=== PATIENT | male | born 1940 | race Asian ===

== ENCOUNTER 2018-07-31 15:39 | Inpatient (IN) | payer OTHER ==
[2018-07-31 16:16] LABS: ADD MAN DIFF? NO
[2018-07-31 16:23] LABS: WHITE BLOOD COUNT 4.3 10^3/ul (4.8-10.8)
[2018-07-31 16:23] LABS: BASOPHILS % 0.7 % (0.0-2.0); EOSINOPHILS # 0.1 10^3/ul (0.0-0.5); EOSINOPHILS % 2.3 % (0.0-7.0); HEMATOCRIT 36.2 % (42.0-52.0); HEMOGLOBIN 11.2 g/dl (14.0-18.0); LYMPHOCYTES % 23.6 % (15.0-51.0); MEAN CORPUSCULAR HEMOGLOBIN 31.2 pg (29.0-33.0); MEAN CORPUSCULAR HGB CONC 30.9 g/dl (32.0-37.0); MEAN CORPUSCULAR VOLUME 100.8 fl (82.0-101.0); MEAN PLATELET VOLUME 9.3 fl (7.4-10.4); MONOCYTE # 0.4 10^3/ul (0.3-0.9); MONOCYTES % 9.2 % (0.0-11.0); NEUTROPHIL # 2.8 10^3/ul (1.6-7.5); PLATELET COUNT 160 10^3/UL (140-415); RED BLOOD COUNT 3.59 10^6/ul (4.70-6.10); RED CELL DISTRIBUTION WIDTH 15.7 % (11.5-14.5)
[2018-07-31 16:43] LABS: INR 0.93; PROTIME 12.6 Sec (11.9-14.9)
[2018-07-31 16:44] LABS: PARTIAL THROMBOPLASTIN TIME 31.6 Sec (23.0-35.0)
[2018-07-31 16:53] LABS: ALANINE AMINOTRANSFERASE 23 IU/L (13-69); ALBUMIN 4.1 g/dl (3.3-4.9); ALBUMIN/GLOBULIN RATIO 1.13; ALKALINE PHOSPHATASE 67 IU/L (42-121); ANION GAP 12 (5-13); ASPARTATE AMINO TRANSFERASE 23 IU/L (15-46); BILIRUBIN,INDIRECT 0.1 mg/dl (0-1.1); BILIRUBIN,TOTAL 0.1 mg/dl (0.2-1.3); BLOOD UREA NITROGEN 59 mg/dl (7-20); CALCIUM 10.4 mg/dl (8.4-10.2); CARBON DIOXIDE 36 mmol/L (21-31); CHLORIDE 89 mmol/L (97-110); CREATINE KINASE 81 IU/L (23-200); GLUCOSE 94 mg/dl (70-220); POTASSIUM 4.4 mmol/L (3.5-5.1); SODIUM 137 mmol/L (135-144); TOTAL PROTEIN 7.7 g/dl (6.1-8.1)
[2018-07-31 17:04] LABS: CREATININE 9.81 mg/dl (0.61-1.24)
[2018-07-31 17:11] LABS: B-TYPE NATRIURETIC PEPTIDE 17400 PG/ML (0-450); CK INDEX 1.9; CK-MB 1.54 ng/ml (0.0-2.4); TROPONIN-I 0.031 ng/ml (0.000-0.120)
[2018-07-31] MEDS: ALBUTEROL 0.083% (NEB) 2.5 MG/3 ML AMP NEB (17:40)
[2018-07-31] MEDS: IPRATROPIUM (NEB) 0.5 MG/2.5 ML AMP NEB (17:40)
[2018-07-31] MEDS ORDERED: ACETAMINOPHEN 325 MG TAB PO (18:30)
[2018-07-31] MEDS ORDERED: ONDANSETRON 4 MG INJ IV ×2 (18:30→22:00)
[2018-07-31 20:27] LABS: AADO2 Arterial 100.1 mmHg (7.0-24.0); Allen Test ACCEPTAB; Arterial Base Excess 6.3 mmol/L (-3.0-3); Arterial Blood Gas Oxygen Sat 95.5 mmHG (95.0-100.0); Arterial COHb 0.6 % (0.0-3.0); Arterial Fraction of Oxyhgb 94.6 % (93.0-99.0); Arterial HCO3 30.9 mmol/L (22.0-26.0); Arterial MetHb 0.3 % (0.0-1.5); Arterial pCO2 45.1 mmhg (35-45); MODE NASAL CANNULA; Site Left Radial
[2018-07-31] MEDS: IODIXANOL LOCM 100 ML BTL (20:29)
[2018-07-31] MEDS: SOD CHLORIDE 0.9% 100 ML (20:29)
[2018-07-31] MEDS ORDERED: ACETAMINOPHEN 500 MG TAB PO (22:00)
[2018-07-31] MEDS ORDERED: RENVELA XX (22:30)
[2018-07-31] MEDS: SEVELAMER CARBONATE 800 MG TABLET PO (23:02)
[2018-07-31] MEDS: CEFTRIAXONE 1 GM/50 ML (PMX) 50 ML IVPB (23:15)
[2018-07-31] MEDS: METOPROLOL (XL) 25 MG TAB PO (23:34)
[2018-07-31] MEDS: DOXAZOSIN 4 MG TAB PO (23:35)
[2018-07-31] MEDS: AZITHROMYCIN 500MG/NS (PMX) 250 ML IVPB (23:56)
[2018-08-01 05:55] LABS: ADD MAN DIFF? NO
[2018-08-01 05:59] LABS: WHITE BLOOD COUNT 4.4 10^3/ul (4.8-10.8)
[2018-08-01 05:59] LABS: BASOPHILS % 0.7 % (0.0-2.0); EOSINOPHILS # 0.1 10^3/ul (0.0-0.5); EOSINOPHILS % 2.5 % (0.0-7.0); HEMATOCRIT 30.9 % (42.0-52.0); HEMOGLOBIN 9.7 g/dl (14.0-18.0); LYMPHOCYTES % 22.6 % (15.0-51.0); MEAN CORPUSCULAR HEMOGLOBIN 31.3 pg (29.0-33.0); MEAN CORPUSCULAR HGB CONC 31.4 g/dl (32.0-37.0); MEAN CORPUSCULAR VOLUME 99.7 fl (82.0-101.0); MEAN PLATELET VOLUME 9.4 fl (7.4-10.4); MONOCYTE # 0.4 10^3/ul (0.3-0.9); MONOCYTES % 9.1 % (0.0-11.0); NEUTROPHIL # 2.8 10^3/ul (1.6-7.5); NEUTROPHILS % 64.9 % (39.0-77.0); PLATELET COUNT 133 10^3/UL (140-415); RED CELL DISTRIBUTION WIDTH 15.9 % (11.5-14.5)
[2018-08-01 06:26] LABS: ALBUMIN 3.3 g/dl (3.3-4.9); ANION GAP 13 (5-13); BLOOD UREA NITROGEN 66 mg/dl (7-20); CALCIUM 9.8 mg/dl (8.4-10.2); CARBON DIOXIDE 30 mmol/L (21-31); CHLORIDE 95 mmol/L (97-110); CHOL/HDL RATIO 2.1 RATIO; CHOLESTEROL 83 mg/dl (100-200); GLUCOSE 67 mg/dl (70-220); HDL CHOLESTEROL 38 mg/dl (31-75); LDL CHOLESTEROL,CALCULATED 34 mg/dl; PHOSPHORUS 5.8 mg/dl (2.5-4.9); POTASSIUM 4.3 mmol/L (3.5-5.1); SODIUM 138 mmol/L (135-144); TRIGLYCERIDES 56 mg/dl (0-149)
[2018-08-01 06:39] LABS: FREE T4 (FREE THYROXINE) 1.59 ng/dl (0.78-2.44)
[2018-08-01 06:43] LABS: CREATININE 11.36 mg/dl (0.61-1.24)
[2018-08-01] MEDS ORDERED: SEVELAMER CARBONATE 0.8 GM PKT PO (08:00)
[2018-08-01] MEDS: MINOXIDIL 2.5 MG TAB PO (08:24)
[2018-08-01] MEDS: SEVELAMER CARBONATE 800 MG TABLET PO ×3 (08:24→16:50)
[2018-08-01] MEDS: LEVOTHYROXINE 100 MCG TAB PO (08:25)
[2018-08-01 09:00] LABS: HEPATITIS B SURFACE ANTIGEN NEGATIVE (NEGATIVE)
[2018-08-01] MEDS ORDERED: METOPROLOL (XL) 25 MG TAB PO (09:00)
[2018-08-01 09:28] LABS: HEPATITIS B SURFACE ANTIBODY POSITIVE (NEGATIVE)
[2018-08-01] MEDS: DOXAZOSIN 4 MG TAB PO (20:25)
[2018-08-01] MEDS ORDERED: DOXAZOSIN 4 MG TAB PO (21:00)
[2018-08-01] MEDS: CEFTRIAXONE 1 GM/50 ML (PMX) 50 ML IVPB (22:00)
[2018-08-01] MEDS: AZITHROMYCIN 500MG/NS (PMX) 250 ML IVPB (22:00)
[2018-08-01] MEDS: METOPROLOL (XL) 25 MG TAB PO (22:41)
[2018-08-02] MEDS ORDERED: LEVOTHYROXINE 125 MCG TAB PO (06:00)
[2018-08-02] MEDS ORDERED: MINOXIDIL 2.5 MG TAB PO (11:00)
== END 2018-08-01 22:10 | disposition home health service (06) | DRG 640 ==
LOC: E/R 15:39 → 6WM 18:30
PROC: 5A1D70Z Performance of Urinary Filtration, Intermittent, Less than 6 Hours Per Day (ICD-10-PCS; principal; 2018-07-31)
PROC: 5A1D70Z Performance of Urinary Filtration, Intermittent, Less than 6 Hours Per Day (ICD-10-PCS; 2018-08-01)
DX: E87.70 Fluid overload, unspecified (principal); N18.6 End stage renal disease; J18.9 Pneumonia, unspecified organism; I12.0 Hypertensive chronic kidney disease with stage 5 chronic kidney disease or end stage renal disease; I13.2 Hypertensive heart and chronic kidney disease with heart failure and with stage 5 chronic kidney disease, or end stage renal disease; I50.9 Heart failure, unspecified; D64.9 Anemia, unspecified; E83.39 Other disorders of phosphorus metabolism; E03.9 Hypothyroidism, unspecified; N40.0 Benign prostatic hyperplasia without lower urinary tract symptoms; R09.02 Hypoxemia; I25.10 Atherosclerotic heart disease of native coronary artery without angina pectoris; Z99.2 Dependence on renal dialysis; Z87.891 Personal history of nicotine dependence
CPT/HCPCS: 36600; 71045; 71275; 80053; 80061; 80069; 82550; 82553; 82803; 83880; 84439; 84443; 84484; 85025; 85610; 85730; 86706; 87340; 90935; 93005; 94664; 99285-25